=== PATIENT | male | born 1965 | race Caucasian/White ===

== ENCOUNTER 2016-12-28 18:22 | Emergency (ER) | payer MEDICAID, OTHER ==
[2016-12-28 18:29] VITALS: TEMP 97.9
--- NOTE | 2016-12-28 18:40 | CPEKG ---
Heart Rate: 64 RR Interval: 938 P-R Interval: 148 QRSD Interval: 80 QT Interval: 404 QTC Interval: 417 P [place]: 47 QRS [place]: 29 T Wave [place]: 46 EKG Severity - NORMAL ECG - EKG Impression: SINUS RHYTHM EKG Impression: Agree with above Electronically Signed By: Miguel Angel Rivero 01-Jan-2017 11:03:51
--- NOTE | 2016-12-28 18:45 | EDPHY ---
HPI/HX/ROS/PE/MDM Narrative: CHIEF COMPLAINT: Chest pain, fatigue, dizziness HPI: The patient is a 51 y/o male with a history of mitral valve prolapse complaining of intermittent chest pain, fatigue, and dizziness onset one month ago. He reports that he wakes up in a cold sweat with chest pain, is constantly tired, and dizzy. He describes the chest pain as "pinching", spreading into his back and arms, and only lasting a few seconds with no precipitating factors. He has associated palpitations and difficulty breathing when sleeping flat on his back. He denies any other associated factors. REVIEW OF SYSTEMS: Aside from elements discussed in the HPI, a comprehensive 10-point review of systems was reviewed and is negative. PMH: Sinus surgeries, two knee surgeries, two colon resections for diverticulitis. SOCIAL HISTORY: Drives for [employer], PCP: Dr. Gallagher, family lives in [place]. PHYSICAL EXAM: General:Patient is alert, in no acute distress. ENT:Eyes are normal to inspection. ENT inspection normal. Neck: Normal inspection. Full range of motion. Respiratory:No respiratory distress. Breath sounds normal bilaterally. Cardiovascular: Regular rate and rhythm. Strong peripheral pulses. Normal cap refill. Abdomen:The abdomen is nontender to palpation. There are no peritoneal signs. There are normal bowel sounds. Back: Normal to inspection. No tenderness to palpation. Skin: Normal color. No rash. Warm and dry. Extremities: Normal appearance. Full range of motion. Neuro: Oriented x3. Normal motor function. Normal sensory function. ED Course: 194: I reassessed patient and discussed his imaging results with him. I feel a CT is warranted at this point. Patient consents to this course of action. 2030: I spoke with Dr. Patel, radiology, who confirmed a normal CT. Patient is safe to be discharged and will follow up with cardiology. Return precautions and follow-up instructions given. Patient agrees with this course of action. MDM: This patient presents with chest pain of unknown etiology. He has history of two negative caths in the past and a negative ECG and troponin today after approximately one month of chest pain with >8 hours of constant chest pain today. As such, I think he is low risk for ACS. Despite his complaint of orthopnea, the patient has no signs of CHF on CT, BNP or exam, and is lying comfortably in bed without discomfort. Despite negative dimer and trop, patient opted to undergo CT chest, which is thankfully negative. There is no evidence of ACS, PE, PTX, PNA, TAD. Patient declines further testing in the hospital. He is comfortable with plan for cardiology followup. - Data Points Imaging Results: Imaging Impressions Chest X-Ray 12/28/16 18:53 Impression: No acute cardiopulmonary features. EKG was ordered and interpreted by myself. Please see BackTrack system for official reading. Study: X-ray of the chest Indication: Chest pain Results: X-ray of the chest was obtained. The results of the study are: normal The study was read by the radiologist, Dr. Patel. I viewed the images myself on the PACS system. Imaging: Discussed imaging studies w/ assistant manager pt Radiologist, I viewed and interpreted images myself Laboratory Results: Laboratory Results 12/28/16 18:42 12/28/16 18:42 12/28/16 12/28/16 12/28/16 18:42 18:42 18:42 WBC 6.67 10^3/uL 10^3/uL (3.80-9.50) RBC 4.99 10^6/uL 10^6/uL (4.40-6.38) Hgb 15.7 g/dL g/dL (13.7-17.5) Hct 44.2 % % (40.0-51.0) MCV 88.6 fL fL (81.5-99.8) MCH 31.5 pg pg (27.9-34.1) MCHC 35.5 g/dL g/dL (32.4-36.7) RDW 12.4 % % (11.5-15.2) Plt Count 340 10^3/uL 10^3/uL (150-400) MPV 10.0 fL fL (8.7-11.7) Neut % (Auto) 53.0 % % (39.3-74.2) Lymph % (Auto) 33.0 % % (15.0-45.0) [place] % (Auto) 9.7 % % (4.5-13.0) Eos % (Auto) 2.7 % % (0.6-7.6) Baso % (Auto) 1.3 % % (0.3-1.7) Nucleat RBC Rel Count 0.0 % % (0.0-0.2) Absolute Neuts (auto) 3.53 10^3/uL 10^3/uL (1.70-6.50) Absolute Lymphs (auto) 2.20 10^3/uL 10^3/uL (1.00-3.00) Absolute Monos (auto) 0.65 10^3/uL 10^3/uL (0.30-0.80) Absolute Eos (auto) 0.18 10^3/uL 10^3/uL (0.03-0.40) Absolute Basos (auto) 0.09 10^3/uL 10^3/uL (0.02-0.10) Absolute Nucleated RBC 0.00 10^3/uL 10^3/uL (0-0.01) Immature Gran % 0.3 % % (0.0-1.1) Immature Gran # 0.02 10^3/uL 10^3/uL (0.00-0.10) D-Dimer < 0.27 ug/mLFEU ug/mLFEU (0.00-0.50) Sodium 137 mEq/L mEq/L (134-144) Potassium 4.2 mEq/L mEq/L (3.5-5.2) Chloride 103 mEq/L mEq/L (97-110) Carbon Dioxide 20 mEq/l L mEq/l (22-31) Anion Gap 14 mEq/L mEq/L (8-16) BUN 17 mg/dL mg/dL (7-23) Creatinine 0.9 mg/dL mg/dL (0.7-1.3) Estimated GFR > 60 Glucose 87 mg/dL mg/dL (70-100) Calcium 9.6 mg/dL mg/dL (8.5-10.4) Troponin I < 0.012 ng/mL ng/mL (0.000-0.034) NT-Pro-B Natriuret Pep 30 pg/mL pg/mL (0-125) General Time Seen by Provider: 12/28/16 18:36 Initial Vital Signs: Initial Vital Signs Temperature (C) 36.6 C 12/28/16 18:25 Heart Rate 76 12/28/16 18:25 Respiratory Rate 16 12/28/16 18:25 Blood Pressure 125/91 H 12/28/16 18:25 O2 Sat (%) 96 10/23/17 18:25 O2 Delivery Mode Room Air O2 (L/minute) 2 Allergies/Adverse Reactions: No Known Allergies Allergy (Verified 05/04/11 13:10) Home Medications: Medication Instructions Recorded NK [No Known Home Meds] 12/28/16 Departure - Departure Disposition: Home, Routine, Self-Care Clinical Impression: Chest pain Condition: Good Instructions: Chest Pain (ED) Additional Instructions: 1. Follow-up with Dr. Clemente, cardiology for unimproved symptoms in 2-3 days. 2. Return to the ED for numbness or tingling on one side, shortness of breath, or other worsening of condition. Referrals: Justin Gallagher MD [Primary Care Provider] - As per Instructions Juan Diego Clemente MD [Medical Doctor] - As per Instructions Report Scribed for: Arnulfo Garcia Report Scribed by: Katie Michelle Date of Report: 12/28/16 Time of Report: 18:45 Physician Review and Approval Statement: Portions of this note were transcribed by an ED scribe. I personally performed the history, physical exam, and medical decision making; and confirm the accuracy of the information in the transcribed note.
[2016-12-28 19:08] LABS: % IMMATURE GRANULYOCYTES 0.3 % (0.0-1.1); ABSOLUTE IMMATURE GRANULOCYTES 0.02 10^3/uL (0.00-0.10); ADD DIFF? NO; ADD MORPH? NO; ADD SCAN? NO; ATYPICAL LYMPHOCYTE FLAG 0 (0-99); FRAGMENT RBC FLAG 30 (0-99); HEMATOCRIT 44.2 % (40.0-51.0); HEMOGLOBIN 15.7 g/dL (13.7-17.5); LEFT SHIFT FLG 0 (0-99); LIPEMIA HEMOLYSIS FLAG 90 (0-99); MEAN CELL HEMOGLOBIN 31.5 pg (27.9-34.1); MEAN CELL HEMOGLOBIN CONCENTR. 35.5 g/dL (32.4-36.7); MEAN CELL VOLUME 88.6 fL (81.5-99.8); PLATELET CLUMPS FLAG 30 (0-99); PLATELET COUNT 340 10^3/uL (150-400); RED BLOOD CELL COUNT 4.99 10^6/uL (4.40-6.38); RED CELL DISTRIBUTION WIDTH 12.4 % (11.5-15.2)
[2016-12-28 19:12] LABS: ANION GAP 14 mEq/L (8-16); CALCIUM 9.6 mg/dL (8.5-10.4); CARBON DIOXIDE 20 mEq/l (22-31); CHLORIDE 103 mEq/L (97-110); CREATININE 0.9 mg/dL (0.7-1.3); GLOMERULAR FILTRATION RATE > 60; GLUCOSE 87 mg/dL (70-100); POTASSIUM 4.2 mEq/L (3.5-5.2); SODIUM 137 mEq/L (134-144)
[2016-12-28 19:17] VITALS: RESP 18
[2016-12-28 19:24] LABS: TROPONIN I < 0.012 ng/mL (0.000-0.034)
[2016-12-28] MEDS ORDERED: IOPAMIDOL (ISOVUE 370) 100 ML BTL IV ONE (19:52)
[2016-12-28 20:57] VITALS: BP 118/72; PULSE 60; O2SAT 98
== END 2016-12-28 20:57 | disposition home or self-care (01) ==
DX: R07.9 Chest pain, unspecified (principal)
CPT/HCPCS: Q9967

== ENCOUNTER → 2017-01-05 | Outpatient (CLI) | payer MEDICAID | LOC: FIMAGING 17:01 | PROVIDERS: ATTEND Family Medicine Sports Medicine | DX: M25.512 Pain in left shoulder (principal) ==

== ENCOUNTER 2018-06-06 14:40 | Inpatient (IN) | payer MEDICAID ==
--- NOTE | 2018-06-06 14:50 | EDPHY ---
H & P Stated Complaint: abdominal pain, periumbilical pain, reflux and heartburn Time Seen by Provider: 06/06/18 14:48 - Personal History Current Tetanus/Diphtheria Vaccine: Yes Current Tetanus Diphtheria and Acellular Pertussis (TDAP): Yes - Medical/Surgical History Hx Asthma: No Hx Chronic Respiratory Disease: No Hx Diabetes: No Hx Cardiac Disease: No Hx Renal Disease: No Hx Cirrhosis: No Hx Alcoholism: No Hx HIV/AIDS: No Hx Splenectomy or Spleen Trauma: No Other PMH: Mitral valve prolapse. 2x colon resections, sinus surgery - Social History Smoking Status: Never smoked Constitutional: Initial Vital Signs Temperature (C) 36.7 C 06/06/18 14:41 Heart Rate 93 06/06/18 14:41 Respiratory Rate 18 06/06/18 14:41 Blood Pressure 130/103 H 06/06/18 14:41 O2 Sat (%) 96 06/06/18 14:41 O2 Delivery Mode Room Air Allergies/Adverse Reactions: No Known Allergies Allergy (Verified 05/04/11 13:10) Home Medications: Medication Instructions Recorded NK [No Known Home Meds] 12/28/16 Medical Decision Making - Diagnostics Imaging Results: Imaging Impressions Abdomen CT 06/06/18 14:54 Impression: 1. Right mid abdominal mesenteric inflammation and suspected low-grade partial small bowel obstruction likely due to adhesion. 2. No free fluid, abscess, or evidence of bowel perforation. 3. Hepatic steatosis. 4. Left nephrolithiasis. Findings discussed with Emergency Department physician, Hugh Levy MD, on at 16:04 hours. E:sfg/note Imaging: Discussed imaging studies w/ scallop binder Radiologist, I viewed and interpreted images myself ED Course/Re-evaluation: CHIEF COMPLAINT: Lower abdominal pain HISTORY OF PRESENT ILLNESS: The patient is a 53 y/o male with a history of two colon resections due to diverticulitis, colostomy and colostomy reversal, and an appendectomy complaining of waxing and waning lower abdominal pain for two days. The patient' s pain was initially more of a cramp but it has slowly progressed. Due to this pain he has not eaten since 12:00 yesterday. The pain was waxing and waning, but it is now more constant and worsening in severity. He also feels like he wants to vomit due to the pain. He feels bloated and constipated, but was able to have a bowel movement after using an enema. No fever, headache, body aches, lightheadedness, chest pain, heart palpitations, shortness of breath, cough, urinary complaints, numbness, paresthesias. REVIEW OF SYSTEMS: A comprehensive 10 system review of systems is otherwise negative aside from elements mentioned in the history of present illness and medical decision making. PHYSICAL EXAM: HR, BP, O2 Sat, RR. Temp noted General Appearance: Alert, well hydrated, appropriate, and non-toxic appearing. Head: Atraumatic without scalp tenderness or obvious injury Eyes: Pupils equal, round, reactive to light and accommodation, EOMI, no trauma , no injection. Ears: Clear bilaterally, no perforation, normal landmarks Nose: Atraumatic, no rhinorrhea, clear. Throat: There is no erythema or exudates, no lesions, normal tonsils, mucus membranes moist. Neck: Supple, 2+ carotid upstroke, nontender, no lymphadenopathy. Respiratory: No retractions, no distress, no wheezes, and no accessory muscle use. Lungs are clear to auscultation bilaterally. Cardiovascular: Regular rate and rhythm, no murmurs, rubs, or gallops. Bilateral carotid, radial, dorsalis pedis, and posterior tibial pulses intact. Good capillary refill all extremities. Gastrointestinal: RUQ and RLQ tenderness to palpation with diffuse tenderness and bloating. Abdomen is soft, no masses, no rebound, no guarding, no peritoneal signs. Musculoskeletal: Normal active ROM of all extremities, atraumatic. Neurological: Alert, appropriate, and interactive. The patient has normal DTRs and non-focal cranial nerves, motor, sensory, and cerebellar exam. Skin: No rashes, good turgor, no nodules on palpation. Past medical history: Mitral valve prolapse, diverticulitis Past surgical history: Colon resections x 2 with colostomy and colostomy reversal, appendectomy, sinus surgery Family history: Denies Social history: [employer] for [employer], single, does not abuse drugs or alcohol DIAGNOSTICS/PROCEDURES/CRITICAL CARE TIME: Abdominopelvic CT: Partial SBO in the terminal small bowel. DIFFERENTIAL DIAGNOSIS: The differential diagnosis for the patient's abdominal pain included but was not limited to SBO, appendicitis, cholecystitis, hernias, testicular torsion, gastritis, and urinary tract infection. MEDICAL DECISION MAKING: The patient is a 53 y/o male with a history of two colon resections due to diverticulitis, colostomy and colostomy reversal, and an appendectomy complaining of waxing and waning lower abdominal pain for two days. The patient' s pain was initially more of a cramp but it has slowly progressed and is now more constant. Due to this pain he has not eaten since 12:00 yesterday. On exam he has RUQ and RLQ tenderness to palpation with diffuse tenderness and bloating. I am concerned he has a bowel obstruction or adhesion due to his prior surgeries. Labs and abdominopelvic CT ordered; 1L IV NS, 1mg IV Dilaudid, 30m IV Toradol, and 4mg IV Zofran administered. 1602: I spoke with Dr. Najera, radiologist, who reports that the patient has a partial SBO in the terminal small bowel. Patient will need to be admitted; I will page the general surgeon. This patient has unremarkable labs and a normal WBC. 1609: Reassessed patient and discussed imaging and laboratory findings. He is feeling better after medication; additional 1mg IV Dilaudid administered. I have also discussed plan for admission, which he is comfortable with. 1622: I consulted with Dr. King, general surgeon, regarding patient. He accepts admission of this patient. - Data Points Laboratory Results: Laboratory Results 06/06/18 14:55 06/06/18 14:55 06/06/18 06/06/18 06/06/18 14:58 14:55 14:55 WBC 9.42 10^3/uL 10^3/uL (3.80-9.50) RBC 5.18 10^6/uL 10^6/uL (4.40-6.38) Hgb 16.2 g/dL g/dL (13.7-17.5) POC Hgb 16.7 gm/dL gm/dL (13.7-17.5) Hct 46.6 % % (40.0-51.0) POC Hct 49 % % (40-51) MCV 90.0 fL fL (81.5-99.8) MCH 31.3 pg pg (27.9-34.1) MCHC 34.8 g/dL g/dL (32.4-36.7) RDW 12.4 % % (11.5-15.2) Plt Count 308 10^3/uL 10^3/uL (150-400) MPV 9.8 fL fL (8.7-11.7) Neut % (Auto) 71.9 % % (39.3-74.2) Lymph % (Auto) 18.0 % % (15.0-45.0) [place] % (Auto) 7.0 % % (4.5-13.0) Eos % (Auto) 1.8 % % (0.6-7.6) Baso % (Auto) 1.0 % % (0.3-1.7) Nucleat RBC Rel Count 0.0 % % (0.0-0.2) Absolute Neuts (auto) 6.77 10^3/uL H 10^3/uL (1.70-6.50) Absolute Lymphs (auto) 1.70 10^3/uL 10^3/uL (1.00-3.00) Absolute Monos (auto) 0.66 10^3/uL 10^3/uL (0.30-0.80) Absolute Eos (auto) 0.17 10^3/uL 10^3/uL (0.03-0.40) Absolute Basos (auto) 0.09 10^3/uL 10^3/uL (0.02-0.10) Absolute Nucleated RBC 0.00 10^3/uL 10^3/uL (0-0.01) Immature Gran % 0.3 % % (0.0-1.1) Immature Gran # 0.03 10^3/uL 10^3/uL (0.00-0.10) POC Sodium 142 mEq/L mEq/L (135-145) Sodium 139 mEq/L mEq/L (135-145) POC Potassium 3.7 mEq/L mEq/L (3.3-5.0) Potassium 3.9 mEq/L mEq/L (3.5-5.2) POC Chloride 106 mEq/L mEq/L (97-110) Chloride 103 mEq/L mEq/L (97-110) Carbon Dioxide 22 mEq/l mEq/l (22-31) POC Total CO2 21 mEq/L L mEq/L (22-31) Anion Gap 14 mEq/L mEq/L (6-14) POC BUN 19 mg/dL mg/dL (7-23) BUN 18 mg/dL mg/dL (7-23) Creatinine 1.1 mg/dL mg/dL (0.7-1.3) POC Creatinine 1.1 mg/dL mg/dL (0.7-1.3) Estimated GFR > 60 Glucose 92 mg/dL mg/dL (70-100) POC Glucose 96 mg/dL mg/dL (70-100) Calcium 9.6 mg/dL mg/dL (8.5-10.4) Total Bilirubin 0.8 mg/dL mg/dL (0.1-1.4) Conjugated Bilirubin 0.4 mg/dL mg/dL (0.0-0.5) Unconjugated Bilirubin 0.4 mg/dL mg/dL (0.0-1.1) AST 44 IU/L IU/L (17-59) ALT 73 IU/L H IU/L (21-72) Alkaline Phosphatase 67 IU/L IU/L (38-126) Total Protein 7.5 g/dL g/dL (6.3-8.2) Albumin 4.5 g/dL g/dL (3.5-5.0) Lipase 54 IU/L IU/L (23-300) Medications Given: Discontinued Medications Hydromorphone HCl (Dilaudid) 1 mg IVP EDNOW ONE Stop: 06/06/18 14:55 Last Admin: 06/06/18 15:03 Dose: 1 mg Hydromorphone HCl (Dilaudid) 1 mg IVP EDNOW ONE Stop: 06/06/18 15:20 Last Admin: 06/06/18 15:25 Dose: 1 mg Sodium Chloride (Ns) 1,000 mls @ 0 mls/hr IV EDNOW ONE; Wide Open PRN Reason: Protocol Stop: 06/06/18 14:55 Last Admin: 06/06/18 15:03 Dose: 1,000 mls Ketorolac Tromethamine (Toradol) 30 mg IVP EDNOW ONE Stop: 06/06/18 15:02 Last Admin: 06/06/18 15:13 Dose: 30 mg Ondansetron HCl (Zofran) 4 mg IVP EDNOW ONE Stop: 06/06/18 14:55 Last Admin: 06/06/18 15:03 Dose: 4 mg Point of Care Test Results: Chemistry 06/06/18 14:58 POC Sodium 142 mEq/L mEq/L (135-145) POC Potassium 3.7 mEq/L mEq/L (3.3-5.0) POC Chloride 106 mEq/L mEq/L (97-110) POC Total CO2 21 mEq/L L mEq/L (22-31) POC BUN 19 mg/dL mg/dL (7-23) POC Creatinine 1.1 mg/dL mg/dL (0.7-1.3) POC Glucose 96 mg/dL mg/dL (70-100) ISTAT H&H 06/06/18 14:58 POC Hgb 16.7 gm/dL gm/dL (13.7-17.5) POC Hct 49 % % (40-51) Departure - Departure Disposition: [facility] [place] Inpatient Acute Clinical Impression: Small bowel obstruction Condition: Fair Referrals: Justin Gallagher MD [Primary Care Provider] - As per Instructions Report Scribed for: Hugh Levy Report Scribed by: Gricel Jules Date of Report: 06/06/18 Time of Report: 16:29
[2018-06-06] MEDS ORDERED: ONDANSETRON 4 MG/2 ML VIAL IVP ONE (14:54)
[2018-06-06] MEDS ORDERED: HYDROmorphONE/DILAUDID 2 MG/ML INJ IVP ONE ×2 (14:54→15:19)
[2018-06-06] MEDS ORDERED: NS 1,000 ML IV ONE (14:54)
[2018-06-06] MEDS ORDERED: KETOROLAC 30 MG/1 ML SDV IVP ONE (15:01)
[2018-06-06 15:09] LABS: PLATELET COUNT 308 10^3/uL (150-400)
[2018-06-06] MEDS ORDERED: NALOXONE HCL 0.4 MG/ML INJ IVP PRN ×2 (19:45→21:54)
[2018-06-06] MEDS ORDERED: D5W 1/2 NS 1,000 ML IV SCH (20:00)
[2018-06-06] MEDS: HYDROmorphONE/DILAUDID 6 MG/30 ML PCA IV PRN (20:30)
--- NOTE | 2018-06-06 20:32 | SOAPPROG ---
SOAP Progress Note Assessment/Plan: Assessment: 53 MALE WITH CRAMPY ABD PAIN/ HX OF MULTIPLE LAPAROTOMIES FOR PERFORATED DIVERTICULITIS AND ILEOSTOMY REVERSAL NO EMESIS OR FEVER HEENT NONICTERIC CHEST CLEAR COR RR ABD SOFT, MILDLY TENDER NEAR OLD ILEOSTOMY SITE, +BS, PROBABLE RIH, NOT INCARCERATED EXTREM OK Plan:OBS/ POSSIBLE NG/ IVS FU 2-WAY 06/06/18 20:28 Objective: Vital Signs Temp Pulse Resp BP Pulse Ox 36.5 C 69 18 131/88 H 94 06/06/18 17:30 06/06/18 17:30 06/06/18 17:30 06/06/18 17:30 06/06/18 17:30 ICD10 Worksheet Patient Problems: Problems Problem Status Onset Small bowel obstruction Acute
[2018-06-06] MEDS ORDERED: ONDANSETRON 4 MG/2 ML VIAL IVP PRN (21:54)
[2018-06-07] MEDS: D5W 1/2 NS W/ 20 KCl/L 1,000 ML IV SCH ×4 (01:42→20:54)
[2018-06-07 04:12] LABS: PLATELET COUNT 242 10^3/uL (150-400)
--- NOTE | 2018-06-07 09:14 | SOAPPROG ---
SOAP Progress Note Assessment/Plan: Assessment/Plan: 53 y M c 2 colon resections for diverticulitis in [place], now with SBO. Intermittent crampy abdominal pain x 1 month. AXR still shows obstructed loop this am. Reviewed film personally with Dr. King. Recommend NGT--patient hesitant for this, but seems amenable. Suspect he may need surgery. Continue conservative management but observe closely. S: wave like crampy abd pain. passed a little gas, but mostly burping. some nausea, but thinks it is bc of the pain. no vomiting. O: alert, mild distress no wob rrr abd distended, well healed midline scar 06/07/18 09:12 Objective: Vital Signs Temp Pulse Resp BP Pulse Ox 36.8 C 84 16 116/75 96 06/07/18 07:37 06/07/18 07:37 06/07/18 07:37 06/07/18 07:37 06/07/18 07:37 Laboratory Results 06/07/18 03:45 06/07/18 03:45 06/06/18 06/07/18 06/08/18 05:59 05:59 05:59 Intake Total 1603.8 Output Total 250 Balance 1353.8 ICD10 Worksheet Patient Problems: Problems Problem Status Onset Small bowel obstruction Acute
[2018-06-07] MEDS: HYDROmorphONE/DILAUDID 6 MG/30 ML PCA IV PRN (09:39)
--- NOTE | 2018-06-07 12:33 | PDMN ---
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
--- NOTE | 2018-06-07 15:23 | ASMTCMCOM ---
CM Note CM Note Notes: Patient chart reviewed for discharge planning purposes. History of two SBR. 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 CM to follow for needs. Plan: TBD Date Signed: 06/07/2018 03:23 PM Electronically Signed By:Asiya Sharma RN
--- NOTE | 2018-06-07 18:17 | SOAPPROG ---
SOAP Progress Note Assessment/Plan: Assessment: 53 MALE WITH CRAMPY ABD PAIN/ HX OF MULTIPLE LAPAROTOMIES FOR PERFORATED DIVERTICULITIS AND ILEOSTOMY REVERSAL NO EMESIS OR FEVER HEENT NONICTERIC CHEST CLEAR COR RR ABD SOFT, MILDLY TENDER NEAR OLD ILEOSTOMY SITE, +BS, PROBABLE RIH, NOT INCARCERATED EXTREM OK Plan:OBS/ POSSIBLE NG/ IVS FU 2-WAY 06/06/18 20:28 06/07/18 18:08 still no flatus/ but more comfortable/ afebrile/ ng out clear and draining well abd soft, +bs, minimal rlq tenderness plan surgery in am if not improved Objective: Vital Signs Temp Pulse Resp BP Pulse Ox 36.8 C 94 18 151/83 H 98 06/07/18 15:53 06/07/18 15:53 06/07/18 15:53 06/07/18 15:53 06/07/18 15:53 06/06/18 06/07/18 06/08/18 05:59 05:59 05:59 Intake Total 1800 Output Total 400 Balance 1400 ICD10 Worksheet Patient Problems: Problems Problem Status Onset Small bowel obstruction Acute
[2018-06-07] MEDS: ACETAMINOPHEN 325 MG TAB PO PRN (19:30)
[2018-06-07] MEDS ORDERED: BISACODYL 10 MG SUPP PR ONE (19:30)
--- NOTE | 2018-06-08 10:50 | SOAPPROG ---
SOAP Progress Note Assessment/Plan: Assessment/Plan: 53 y M c 2 colon resections for diverticulitis in [place], now with SBO. Intermittent crampy abdominal pain x 1 month. Now passing gas. Abdomen is much softer. NGT with high output, but thin and light--likely mostly ice chips. AXR improved. SBFT today. Dispo/plan: pending SBFT results. If normal, plan to advance diet and go home. If abnormal, may still need surgery. S: wave like crampy abd pain is gone. passed gas, less burping. no nausea O: alert, mild distress no wob rrr abd soft, nt, +hypoactive, well healed midline scar 06/08/18 10:48 Objective: Vital Signs Temp Pulse Resp BP Pulse Ox 36.8 C 78 20 114/70 94 06/08/18 08:00 06/08/18 08:00 06/08/18 08:00 06/08/18 08:00 06/08/18 08:00 06/07/18 06/08/18 06/09/18 05:59 05:59 05:59 Intake Total 3507 Output Total 3100 Balance 407 ICD10 Worksheet Patient Problems: Problems Problem Status Onset Small bowel obstruction Acute
[2018-06-08] MEDS: ACETAMINOPHEN 325 MG TAB PO PRN (20:09)
[2018-06-09] MEDS: ACETAMINOPHEN 325 MG TAB PO PRN (06:19)
[2018-06-09 07:20] VITALS: BP 117/81
--- NOTE | 2018-06-09 07:48 | SOAPPROG ---
SOAP Progress Note Assessment/Plan: Assessment/plan: 53 y/o M c 2 colon resections for diverticulitis in [place], now with SBO. Intermittent crampy abdominal pain x 1 month. Symptoms improved. Tolerating clears. SBFT yesterday grossly normal, with some inflammation. Dispo: d/c home today. S: "Tired", but abdomen feels better. Tolerating clears. Passing gas and having BMs O: Alert Afebrile RRR No increased WOB Abdomen: soft, nondistended, mildly ttp in the RLQ. 06/09/18 07:46 Objective: Vital Signs Temp Pulse Resp BP Pulse Ox 36.7 C 66 16 117/81 H 95 06/09/18 07:19 06/09/18 07:19 06/09/18 07:19 06/09/18 07:19 06/09/18 07:19 06/08/18 06/09/18 06/10/18 05:59 05:59 05:59 Intake Total 3507 1950 Output Total 3100 500 Balance 407 1450 ICD10 Worksheet Patient Problems: Problems Problem Status Onset Small bowel obstruction Acute
--- NOTE | 2018-06-09 11:47 | ASDISCHSUM ---
Discharge Information Plan Status:Home with No Needs Medically Cleared to Leave:06/09/2018 Discharge Date:06/09/2018 CM D/C Disposition:Home, Routine, Self-Care ADT D/C Disposition:Home, Routine, Self-Care Projected Discharge Date:06/09/2018 Transportation at D/C: Discharge Delay Reason: Follow-Up Date:06/09/2018 Discharge Slot: Final Diagnosis: Placement Information Patient Contact Information Contact Name:JENNA Relationship:Father Address: Home Phone: City:[place] Alternate Phone: [facility] Code:[place] Email: Financial Information Financial Class:Medicaid Primary Plan Desc:[employer] [place] [place] Primary Plan Number:[id number] Secondary Plan Desc: Secondary Plan Number: Assessment Information [facility] Progress Note CM Note ROB Note Notes: Patient chart reviewed for discharge planning purposes. History of two SBR. 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 CM to follow for needs. Plan: TBD Date Signed: 06/07/2018 03:23 PM Electronically Signed By:Asiya Sharma RN Case Management Discharge Plan Note Case Management Discharge Discharge Order Complete? Answers: Yes Patient to Obtain Answers: via Family Medications Transportation Arranged Answers: Family/Friends Discharge Comments Notes: ROB spoke with RN; pt will discharge after bowel movement, per surgery. ROB met with pt to discuss discharge plans. He says that this "isn't the first time I've been through this". CM provided support and encouragement. Answered questions and provided education about Meals on Wheels and [facility]. Pt was appreciative of information and said he would call to arrange linkage. No therapies ordered. Pt reportedly at baseline for mobility. Pt reports he has transportation home; no concerns noted about obtaining meds. No other CM needs identified. Date Signed: 06/09/2018 11:46 AM Electronically Signed By:PETER Jackson Intervention Information
--- NOTE | 2018-06-09 11:48 | ASMTLACE ---
LACE Length of stay for Answers: 1 day current admission Acuity / Level of Answers: Yes Care: Did the patient have an inpatient admission? Comorbidities - select Answers: Opioid dependence all that apply / Chronic pain Previous myocardial infarction # of Emergency department Answers: 1-2 visits in the last 6 months Social determinants Answers: Lack of community resources and/or lack of social support (no pcp, lives alone, transportation, manda d) Score: 14 Date Signed: 06/09/2018 11:47 AM Electronically Signed By:PETER Jackson
== END 2018-06-09 16:02 | disposition home or self-care (01) | DRG 247 ==
LOC: F1N 16:58 → OBSVTOIN 06-07 12:20
PROVIDERS: ADMIT Surgery; ATTEND Surgery
DX: K56.600 Partial intestinal obstruction, unspecified as to cause (principal); Z90.49 Acquired absence of other specified parts of digestive tract
CPT/HCPCS: 82435-PO; 82565-PO; 82947-PO; 84132-PO; 84295-PO; 84520-PO; 85014-ER; 96374; G0378; J1170; J1885; J2405

== ENCOUNTER 2018-08-19 20:11 | Emergency (ER) | payer MEDICAID | END 2018-08-19 22:20 | disposition home or self-care (01) ==

== ENCOUNTER 2018-08-23 05:18 | Emergency (ER) | payer MEDICAID | END 2018-08-23 07:27 | disposition home or self-care (01) ==